=== PATIENT | male | born 1985 | race American Indian/Alaskan Native ===

== ENCOUNTER 2017-02-18 20:18 | Emergency (ER) | payer SELFPAY ==
[2017-02-18 21:49] LABS: Basophils % (Auto) 0.3 % (0.0-1.8); Eosinophils % (Auto) 3.4 % (0.0-4.3); Hematocrit 45.3 % (35.5-45.6); Hemoglobin 14.7 gm/dl (11.8-15.2); Mean Corpuscular HGB Conc 32 % (32-34); Mean Corpuscular Hemoglobin 28 pg (28-32); Mean Corpuscular Volume 86 fl (84-94); Platelet Count 209 K/mm3 (140-440); Red Blood Count 5.25 M/mm3 (3.65-5.03); White Blood Count 8.6 K/mm3 (4.5-11.0)
[2017-02-18 22:05] LABS: Bilirubin,Urine NEG (Negative); Blood,Urine SM (Negative); Ketones,Urine TR mg/dL (Negative); Leukocyte Esterase,Urine SM (Negative); Mucus,Urine 3+ /HPF; Nitrite,Urine NEG (Negative); Sperm,Urine FEW /HPF (NP)
[2017-02-18 22:25] LABS: Anion Gap 16 mmol/L; BUN/Creatinine Ratio 11.11; Blood Urea Nitrogen 10 mg/dL (9-20); Calcium 9.1 mg/dL (8.4-10.2); Carbon Dioxide 27 mmol/L (22-30); Chloride 99.6 mmol/L (98-107); Glucose 97 mg/dL (75-100); Potassium 3.9 mmol/L (3.6-5.0); Sodium 139 mmol/L (137-145)
[2017-02-19 05:49] VITALS: BP 112/72
--- NOTE | 2017-02-19 08:09 | Emergency Department Report ---
ED Male HPI - General Chief complaint: Urogenital-Male Stated complaint: BLOOD IN URINE/ABD PAIN Time Seen by Provider: 02/19/17 07:39 Source: patient Mode of arrival: Ambulatory Limitations: No Limitations - History of Present Illness Initial comments: PT states yesterday he had to submit a urine specimen. PT states that he noticed some blood on the toilet seat in the restroom but he did not think that it was his blood. PT states the woman administering the test told him that he had blood on the seat. PT states that he went home and was going to shower, when he noticed blood on his underwear. PT states later on he noticed hematuria and "white stuff" when he urinated. PT states that this has never happened before. PT denies any recent sexual activity, last being in November of this year. PT denies recent ejaculation. PT states while in the ED he developed urinary retention and dysuria. PT states that these symptoms have never happened before. MD Complaint: other (hematuria) Onset/Timin -: Gradual, days(s) Severity: severe Severity scale (0 -10): 8 Quality: aching Consistency: constant Improves with: none Worsens with: urination urinary retention, blood in urine, dysuria. denies: discharge, swelling, mass, fever, nausea/vomiting, incontinence - Related Data Sexually active: Yes (last encounter November ) Previous Rx's Medication Instructions Recorded Last Taken Type Acetaminophen/Codeine [Tylenol #3] 1 tab PO Q6H PRN #12 tab 02/19/17 Unknown Rx Doxycycline [Vibramycin CAP] 100 mg PO Q12HR #20 capsule 02/19/17 Unknown Rx Allergies Allergy/AdvReac Type Severity Reaction Status Date / Time egg Allergy Hives Verified 02/18/17 21:10 ED Review of Systems ROS: Stated complaint: BLOOD IN URINE/ABD PAIN Other details as noted in HPI Comment: All other systems reviewed and negative Constitutional: denies: chills, fever Cardiovascular: denies: chest pain Gastrointestinal: abdominal pain, nausea. denies: vomiting Genitourinary: as per HPI, dysuria, hematuria. denies: frequency, discharge, testicular pain, testicular mass Musculoskeletal: back pain (pt states from sitting in ER all night ) ED Past Medical Hx - Past Medical History Previous Medical History?: No - Surgical History Past Surgical History?: No - Social History Smoking Status: Current Every Day Smoker Substance Use Type: None - Medications Home Medications: Home Medications Medication Instructions Recorded Confirmed Last Taken Type Acetaminophen/Codeine [Tylenol #3] 1 tab PO Q6H PRN #12 tab 02/19/17 Unknown Rx Doxycycline [Vibramycin CAP] 100 mg PO Q12HR #20 capsule 02/19/17 Unknown Rx ED Physical Exam - General Limitations: No Limitations General appearance: alert, in no apparent distress - Head Head exam: Present: atraumatic, normocephalic, normal inspection - Eye Eye exam: Present: normal appearance, PERRL, EOMI. Absent: conjunctival injection - ENT ENT exam: Present: normal exam, normal orophraynx, normal external ear exam - Neck Neck exam: Present: normal inspection, full ROM. Absent: tenderness - Respiratory Respiratory exam: Present: normal lung sounds bilaterally. Absent: respiratory distress, wheezes, chest wall tenderness - Cardiovascular Cardiovascular Exam: Present: regular rate, normal rhythm, normal heart sounds - GI/Abdominal GI/Abdominal exam: Present: soft, tenderness, normal bowel sounds. Absent: guarding, rebound - Extremities Exam Extremities exam: Present: normal inspection, full ROM, normal capillary refill - Back Exam Back exam: Present: normal inspection, full ROM, tenderness, CVA tenderness (R) . Absent: vertebral tenderness - Neurological Exam Neurological exam: Present: alert, oriented X3 - Psychiatric Psychiatric exam: Present: normal affect, normal mood - Skin Skin exam: Present: warm, dry, intact ED Course Vital Signs 02/18/17 02/19/17 02/19/17 21:10 05:47 08:44 Temperature 98.1 F 97.6 F Pulse Rate 64 54 L Respiratory 18 18 18 Rate Blood Pressure 102/70 112/72 O2 Sat by Pulse 98 100 Oximetry - Reevaluation(s) Reevaluation #1: 02/19/17 08:[address] scan to evaluate his back pain and hematuria. PT aware that these symptoms could be caused by a kidney stone. PT does not think that he is passing a kidney stone. PT states that he thinks his back is sore from sitting in the ED over night. PT does not want further work up, pt aware that this could lead to an undiagnosed condition. PT verbalizes understanding. PT aware that he will need close urology follow up. PT given strict return precautions. PT states he will return if his symptoms worsen. Due to pt's c/o lower stomach pain and pt having sperm in his UA, will treat for prostatitis. cultures pending. - Pulse Oximetry Interpretation Digit-Finger Initial Pulse Oximetry Readin Actions Taken: none ED Medical Decision Making - Lab Data Result diagrams: 02/18/17 21:28 02/18/17 21:28 Lab Results 02/18/17 02/18/17 02/18/17 Range/Units 21:28 21:28 21:30 WBC 8.6 (4.5-11.0) K/mm3 RBC 5.25 H (3.65-5.03) M/mm3 Hgb 14.7 (11.8-15.2) gm/dl Hct 45.3 (35.5-45.6) % MCV 86 (84-94) fl MCH 28 (28-32) pg MCHC 32 (32-34) % RDW 13.0 L (13.2-15.2) % Plt Count 209 (140-440) K/mm3 Lymph % (Auto) 42.6 H (13.4-35.0) % [place] % (Auto) 5.1 (0.0-7.3) % Eos % (Auto) 3.4 (0.0-4.3) % Baso % (Auto) 0.3 (0.0-1.8) % Lymph # 3.6 (1.2-5.4) K/mm3 [place] # 0.4 (0.0-0.8) K/mm3 Eos # 0.3 (0.0-0.4) K/mm3 Baso # 0.0 (0.0-0.1) K/mm3 Seg Neutrophils % 48.6 (40.0-70.0) % Seg Neutrophils # 4.2 (1.8-7.7) K/mm3 Sodium 139 (137-145) mmol/L Potassium 3.9 (3.6-5.0) mmol/L Chloride 99.6 (98-107) mmol/L Carbon Dioxide 27 (22-30) mmol/L Anion Gap 16 mmol/L BUN 10 (9-20) mg/dL Creatinine 0.9 (0.8-1.5) mg/dL Estimated GFR > 60 ml/min BUN/Creatinine Ratio 11.11 % Glucose 97 (75-100) mg/dL Calcium 9.1 (8.4-10.2) mg/dL Urine Color Yellow (Yellow) Urine Turbidity Clear (Clear) Urine pH 5.0 (5.0-7.0) Ur Specific [place] 1.029 (1.003-1.030) Urine Protein 30 mg/dl (Negative) mg/dL Urine Glucose (UA) Neg (Negative) mg/dL Urine Ketones Tr (Negative) mg/dL Urine Blood Sm (Negative) Urine Nitrite Neg (Negative) Urine Bilirubin Neg (Negative) Urine Urobilinogen 2.0 (<2.0) mg/dL Ur Leukocyte Esterase Sm (Negative) Urine WBC (Auto) 15.0 H (0.0-6.0) /HPF Urine RBC (Auto) 4.0 (0.0-6.0) /HPF Calcium Oxalate Crystal 3+ Urine Mucus 3+ /HPF Urine Sperm Few ([employer]) /HPF - Differential Diagnosis uti, std, renal colic, prostatitis Critical Care Time: No Critical care attestation.: If time is entered above; I have spent that time in minutes in the direct care of this critically ill patient, excluding procedure time. ED Disposition Clinical Impression: UTI (urinary tract infection) Qualifiers: Urinary tract infection type: site unspecified Hematuria presence: with hematuria Qualified Code(s): N39.0 - Urinary tract infection, site not specified Back pain Qualifiers: Back pain location: thoracic back pain Chronicity: acute Back pain laterality: right Qualified Code(s): M54.6 - Pain in thoracic spine Disposition: DISCHARGED TO HOME OR SELFCARE Is pt being admited?: No Does the pt Need Aspirin: No Condition: Stable Instructions: Kidney Stones (ED), Prostatitis (ED), Urinary Tract Infection in Men (ED) Additional Instructions: No driving or ETOH after taking Tylenol #3 Finish all antibiotics abstain from sex Follow up with Urology in 2-3 days Return to the ED if worsening of symptoms or concern Prescriptions: Acetaminophen/Codeine [Tylenol #3] 1 tab PO Q6H PRN #12 tab PRN Reason: Pain , Severe (7-10) Doxycycline [Vibramycin CAP] 100 mg PO Q12HR #20 capsule Referrals: ROLANDO BRENNAN MD [Primary Care Provider] - 3-5 Days ROXIE SALVADOR MD [Staff Physician] - 3-5 Days [facility] [place] [Outside] - 3-5 Days [facility] [Outside] - 3-5 Days MONICA TORREZ MD [Staff Physician] - 3-5 Days ANU KING MD [Staff Physician] - 3-5 Days Forms: Accompanied Note, Work/School Release Form(ED) Time of Disposition: 08:22
[2017-02-19] MEDS ORDERED: NORCO 5/325 PO ONE (08:17)
[2017-02-19] MEDS ORDERED: ROCEPHIN IM ONE (08:18)
[2017-02-19] MEDS ORDERED: XYLOCAINE 1% MPF 5 mL INFILTRATI ONE (08:18)
== END 2017-02-19 08:45 | disposition home or self-care (01) ==
LOC: ED 20:18
DX: N39.0 Urinary tract infection, site not specified (principal); F17.200 Nicotine dependence, unspecified, uncomplicated; Z91.012 Allergy to eggs
CPT/HCPCS: 36415; 80048; 81001; 85025; 87086; 87591; 96372; 99283; J0696